=== PATIENT | female | born 1940 | race Caucasian/White ===

== ENCOUNTER 2021-03-12 10:08 | Emergency (ER) | payer MEDICARE ==
[2021-03-12 11:10] LABS: HEMOGLOBIN 11.8 gm/dl (12.3-15.3); RED BLOOD COUNT 3.78 M/UL (4.00-5.10); WHITE BLOOD COUNT 5.9 K/UL (4.5-11.0)
[2021-03-12] MEDS ORDERED: MACROBID 100 M100 MG PO (13:41)
== END 2021-03-12 14:43 | disposition home or self-care (01) ==
LOC: ER1 10:08
PROVIDERS: Physician Assistant
DX: R53.1 Weakness (principal); R30.0 Dysuria; I48.91 Unspecified atrial fibrillation; Z86.73 Personal history of transient ischemic attack (TIA), and cerebral infarction without residual deficits; Z79.82 Long term (current) use of aspirin; Z88.8 Allergy status to other drugs, medicaments and biological substances; Z90.49 Acquired absence of other specified parts of digestive tract
CPT/HCPCS: 51701; 70450; 80053; 81001; 83880; 85025; 87086; 99285